=== PATIENT | female | born 1960 | race Caucasian/White ===

== ENCOUNTER 2023-08-08 11:38 | Outpatient (AMB) | payer MEDICARE, MEDICAID, SELFPAY ==
--- NOTE | 2023-08-08 09:50 | MHC.OFFVISPS ---
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 Has tried adderall, ritlain, focalin,, tried methylphenidate ER - all with side effects- anxiety and jaw tightness. Pt has been on vyvanse for years with good effect. Pt recovering well from foot surgery. reports her mood is fair; more depressed since not able to get vyvanse; feels more easily overwhelmed and can't get things done; housework piling up; pt feels bad about herself. good. no anxiety. feels vyvanse is helpful. She continues in therapy with monthly sessions. no SI or Hi; takes meds daily- no side effects. Pt is supposed to follow up with [facility] where her therpaist is from but she is on long wait list. Past Psychiatric History: pt has a long history of depression and untreated ADHD since childhood; she had been on paxil in past but did not like WD when missed a dose; she cross tapered to prozac without incident; good results from prozac. started on Vyvanse after multiple trial of other medications. no inpt tx; is in outpt therapy with Dr. Kristine Kothari at [facility]. No IPLOC Subjective Subjective Subjective Medication Compliance: Yes Side effects from medications: No Review of Systems Medical Review of Systems: unchanged Mental Status Exam Mental Status Exam Patient Appearance: Disheveled Patient Orientation: Person, Place, Time and Situation Level of Consciousness: Awake Patient Behavior: Appropriate Mood Description: Flat Affect Description: Withdrawn and Flat Patient Cognition Impaired: No Ability to Follow Directions: Fair Speech Pattern: Clear and Impoverished Memory Description: Intact Hallucinations: None Delusions: Not Present Thought Process: Intact and Goal Oriented Thought Content: positive for Intact and positive for Goal Oriented Judgement: Fair Assessment and Plan Assessment & Plan (1) ADHD: Status: Acute Code(s): F90.9 - Attention-deficit hyperactivity disorder, unspecified type (2) Major depressive disorder, recurrent, moderate: Status: Acute Code(s): F33.1 - Major depressive disorder, recurrent, moderate Plan continue prozac and vyvanse complete PA fro vyvanse pt failed trial s of adderall, focalin, ritlain, ritalin ER. strattera contraindicated due to rx of prozac return in 4-6 weeks Medications: New fluoxetine 20 mg PO DAILY 30 caps 2RF Vyvanse (lisdexamfetamine) BRAND NAME ONLY MEDICALLY NECESSARY . Partial Fill upon patient request. 50 mg PO QAM 30 caps 0RF NS Counseling and coordination of Care Pt. Self Management counseling: Exercise and General coping skills Medication management counseling: Effectiveness, Side effects, Dosing range, Duration, Drug interaction, Adherence and Other Diagnosis and Prognosis Counseling: Accuracy of diagnosis, Prognosis over time, Impact of diagnosis on life functions, Impact of family relationship, Problematic behaviors secondary to diagnosis and Adequacy of current interventions Details: I spent 30 minutes reviewing the record, seeing the patient and documenting in the medical record. Counseling provided to the patient/caregiver as outlined below. Addressed patient/caregiver concerns regarding current medication regime including effective adherence. Addressed patient/caregiver concerns regarding diagnosis and prognosis including accuracy of diagnosis, prognosis over time, impact of diagnosis. Addressed patient/caregiver concerns regarding impact of recent stressors. [facility] Surgical History (Updated 08/08/23 @ 09:54 by Maribel Ferrer APRN) History of foot surgery Social History: lives with partner- 3 adult children, one grandchild, on disability Substance History: none Trauma History: none Coding Level of Care Code Est Pt Level 4 (99710) Diagnoses ADHD F90.9 Major depressive disorder, recurrent, moderate F33.1
== END 2023-08-08 14:21 | disposition home or self-care (01) ==
LOC: HO.HOP 11:38
PROVIDERS: PCP Internal Medicine; Visit Provider Clinical Nurse Specialist Psychiatric/Mental Health
DX: F90.9 Attention-deficit hyperactivity disorder, unspecified type (principal); F33.1 Major depressive disorder, recurrent, moderate
CPT/HCPCS: 99214

== ENCOUNTER → 2023-08-08 11:38 | Outpatient (BNVA) | payer MEDICARE, MEDICAID, SELFPAY | PROVIDERS: PCP Internal Medicine; Visit Provider Clinical Nurse Specialist Psychiatric/Mental Health | DX: F90.9 Attention-deficit hyperactivity disorder, unspecified type (principal); F33.1 Major depressive disorder, recurrent, moderate | CPT/HCPCS: 99212 ==

== ENCOUNTER 2023-10-03 13:13 | Outpatient (AMB) | payer MEDICARE, MEDICAID, SELFPAY ==
--- NOTE | 2023-10-03 13:13 | MHC.OFFVISPS ---
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 Allergies No Known Allergies Allergy (Verified 08/08/23 09:50) Medication List - Last Reconciled 10/03/23 by Maribel Ferrer APRN albuterol sulfate 90 mcg/actuation (Ventolin HFA) 2 - 6 puffs inhalation QID PRN atorvastatin 40 mg PO DAILY fluoxetine 20 mg PO DAILY fluticasone propion-salmeterol 250-50 mcg/dose (Advair Diskus) 1 ea inhalation BID omeprazole 40 mg PO DAILY pramipexole 0.25 mg PO DAILY Vyvanse (lisdexamfetamine) 50 mg PO QAM NS HPI- Psychiatric Chief Complaint: depression, anxiety, ADHD HPI Narrative: pt reports mood a little low; more irritable and easily frustrated; had been taking prozac every other day- she wantst o start taking every day. doing well with vyvanse. no side effects; does not think the vyvanse is causing moodiness; PHQ9 from july and same and pt was off the vyvanse at the time; pt reports functioning is better with vyvanse- more aboe to stay in taks, more attentive and less reactive. Past Psychiatric History: pt has a long history of depression and untreated ADHD since childhood; she had been on paxil in past but did not like WD when missed a dose; she cross tapered to prozac without incident; good results from prozac. started on Vyvanse after multiple trial of other medications. no inpt tx; is in outpt therapy with Dr. Kristine Kothari at [facility] No IPLOC Subjective Subjective Subjective Medication Compliance: Yes Side effects from medications: No Review of Systems Medical Review of Systems: unchanged Mental Status Exam Mental Status Exam Patient Appearance: Well Grooomed and Appropriate Patient Orientation: Person, Place, Time and Situation Level of Consciousness: Awake and Alert Patient Behavior: Appropriate Mood Description: Calm and Appropriate Affect Description: Calm and Appropriate Patient Cognition Impaired: No Ability to Follow Directions: Good Speech Pattern: Clear and Appropriate Memory Description: Intact Hallucinations: None Delusions: Not Present Thought Process: Intact, Goal Oriented and Linear Thought Content: positive for Intact, positive for Goal Oriented and positive for Logical Judgement: Fair Assessment and Plan Assessment & Plan (1) Major depressive disorder, recurrent, moderate: Status: Acute Code(s): F33.1 - Major depressive disorder, recurrent, moderate (2) ADHD: Status: Acute Qualifiers: Attention deficit-hyperactivity disorder type: combined inattentive-hyperactive Qualified Code(s): F90.2 - Attention-deficit hyperactivity disorder, combined type Code(s): F90.9 - Attention-deficit hyperactivity disorder, unspecified type Plan take prozac 20 mg daily take vyvanse 50 mg daily return in 3 months Medications: Refilled Vyvanse (lisdexamfetamine) BRAND NAME ONLY MEDICALLY NECESSARY . Partial Fill upon patient request. 50 mg PO QAM 30 caps 0RF NS Counseling and coordination of Care Pt. Self Management counseling: Exercise, Maintenance-social rhythm, Mod caffeine/ETOH intake, Sleep hygiene, Behavior activation and General coping skills Medication management counseling: Effectiveness, Side effects, Dosing range, Duration, Drug interaction and Adherence Diagnosis and Prognosis Counseling: Accuracy of diagnosis, Prognosis over time, Impact of diagnosis on life functions, Impact of family relationship, Problematic behaviors secondary to diagnosis and Adequacy of current interventions Details: I spent 30 minutes reviewing the record, seeing the patient and documenting in the medical record. Counseling provided to the patient/caregiver as outlined below. Addressed patient/caregiver concerns regarding current medication regime including effective adherence. Addressed patient/caregiver concerns regarding diagnosis and prognosis including accuracy of diagnosis, prognosis over time, impact of diagnosis. Addressed patient/caregiver concerns regarding impact of recent stressors. [facility] Medical History (Updated 10/03/23 @ 13:44 by Maribel Ferrer APRN) UTI (urinary tract infection) Surgical History History of foot surgery Social History: lives with partner- 3 adult children, one grandchild, on disability Substance History: none Trauma History: none Coding Level of Care Code Est Pt Level 4 (54926) Diagnoses Major depressive disorder, recurrent, moderate F33.1 Attention deficit hyperactivity disorder (ADHD), combined type F90.2 Attention deficit-hyperactivity disorder type: combined inattentive-hyperactive
== END 2023-10-03 13:40 | disposition home or self-care (01) ==
LOC: HO.HOP 13:13
PROVIDERS: PCP Internal Medicine; Visit Provider Clinical Nurse Specialist Psychiatric/Mental Health
DX: F33.1 Major depressive disorder, recurrent, moderate (principal); F90.2 Attention-deficit hyperactivity disorder, combined type
CPT/HCPCS: 99214

== ENCOUNTER → 2023-10-03 13:13 | Outpatient (BNVA) | payer MEDICARE, MEDICAID, SELFPAY | PROVIDERS: PCP Internal Medicine; Visit Provider Clinical Nurse Specialist Psychiatric/Mental Health | DX: F33.1 Major depressive disorder, recurrent, moderate (principal); F90.2 Attention-deficit hyperactivity disorder, combined type | CPT/HCPCS: 99212 ==

== ENCOUNTER 2024-01-15 12:54 | Outpatient (AMB) | payer MEDICARE, MEDICAID, SELFPAY ==
--- NOTE | 2024-01-15 12:58 | A.OFFPSYCH_ITS ---
Intake Intake Visit Reasons: Depression Direct Selling Counselor Required: Yes Allergies Sulfamethazole Allergy (Intermediate, Uncoded 10/07/23 15:55) rash Medication List - Last Reconciled 01/15/24 by Maribel Ferrer APRN albuterol sulfate 90 mcg/actuation (Ventolin HFA) 2 - 6 puffs inhalation QID PRN atorvastatin 40 mg PO DAILY fluoxetine 20 mg PO DAILY fluticasone propion-salmeterol 250-50 mcg/dose (Advair Diskus) 1 ea inhalation BID omeprazole 40 mg PO DAILY pramipexole 0.25 mg PO DAILY Vyvanse (lisdexamfetamine) 50 mg PO QAM NS HPI- Psychiatric Chief Complaint: Depression HPI Narrative: pt mood stable; ADHD symptoms stable; no problems with medication. no side effects; sleep in tact ; appetite intact. Past Psychiatric History: pt has a long history of depression and untreated ADHD since childhood; she had been on paxil in past but did not like WD when missed a dose; she cross tapered to prozac without incident; good results from prozac. started on Vyvanse after multiple trial of other medications. no inpt tx; is in outpt therapy with Dr. Kristine Kothari at [facility]. No IPLOC Subjective Subjective Subjective Medication Compliance: Yes Side effects from medications: No Review of Systems Medical Review of Systems: unchanged Mental Status Exam Mental Status Exam Patient Appearance: Well Grooomed and Appropriate Patient Orientation: Person, Place, Time and Situation Level of Consciousness: Awake and Appropriate Patient Behavior: Appropriate and Restless Mood Description: Calm and Flat Affect Description: Calm and Flat Patient Cognition Impaired: No Ability to Follow Directions: Good Speech Pattern: Clear Memory Description: Intact Hallucinations: None Delusions: Not Present Thought Process: Intact Thought Content: positive for Intact Judgement: Good Assessment and Plan Assessment & Plan (1) ADHD: Status: Acute Qualifiers: Attention deficit-hyperactivity disorder type: combined inattentive- hyperactive Qualified Code(s): F90.2 - Attention-deficit hyperactivity disorder, combined type Code(s): F90.9 - Attention-deficit hyperactivity disorder, unspecified type (2) Major depressive disorder, recurrent, mild: Status: Acute Code(s): F33.0 - Major depressive disorder, recurrent, mild Plan continue prozac and vyvanse Medications: Refilled Vyvanse (lisdexamfetamine) BRAND NAME ONLY MEDICALLY NECESSARY . Partial Fill upon patient request. 50 mg PO QAM 30 caps 0RF NS Counseling and coordination of Care Pt. Self Management counseling: Exercise, Maintenance-social rhythm, Mod caffeine/ETOH intake, Sleep hygiene, Behavior activation and General coping skills Medication management counseling: Effectiveness, Side effects, Dosing range, Duration, Drug interaction and Adherence Diagnosis and Prognosis Counseling: Accuracy of diagnosis, Prognosis over time and Adequacy of current interventions Details: I spent 30 minutes reviewing the record, seeing the patient and documenting in the medical record. Counseling provided to the patient/caregiver as outlined below. Addressed patient/caregiver concerns regarding current medication regime including effective adherence. Addressed patient/caregiver concerns regarding diagnosis and prognosis including accuracy of diagnosis, prognosis over time, impact of diagnosis. Addressed patient/caregiver concerns regarding impact of recent s tressors. [facility] Medical History (Updated 02/03/24 @ 09:14 by Maribel Ferrer APRN) Major depressive disorder, recurrent, moderate UTI (urinary tract infection) Surgical History History of foot surgery Social History: lives with partner- 3 adult children, one grandchild, on disability Substance History: none Trauma History: none Coding Level of Care Code Est Pt Level 4 (89151) Diagnoses Attention deficit hyperactivity disorder (ADHD), combined type F90.2 Attention deficit-hyperactivity disorder type: combined inattentive- hyperactive Major depressive disorder, recurrent, mild F33.0
== END 2024-01-15 13:16 | disposition home or self-care (01) ==
LOC: HO.HOP 12:54
PROVIDERS: PCP Internal Medicine; Visit Provider Clinical Nurse Specialist Psychiatric/Mental Health
DX: F90.2 Attention-deficit hyperactivity disorder, combined type (principal); F33.0 Major depressive disorder, recurrent, mild
CPT/HCPCS: 99214

== ENCOUNTER → 2024-01-15 12:54 | Outpatient (BNVA) | payer MEDICARE, MEDICAID, SELFPAY | PROVIDERS: PCP Internal Medicine; Visit Provider Clinical Nurse Specialist Psychiatric/Mental Health | DX: F90.2 Attention-deficit hyperactivity disorder, combined type (principal); F33.0 Major depressive disorder, recurrent, mild | CPT/HCPCS: 99212 ==